=== PATIENT | male | born 1960 | race Caucasian/White ===

== ENCOUNTER → 2021-07-27 | Outpatient (CLI) | payer OTHER, BC ==
[~2021-07-27] MED LIST: ASPI-630 PO; GABA-585 PO; HYDR-2761 PO; HYDR12.575 PO; MULT-496 PO
== END ==
LOC: LAB 12:04
PROVIDERS: ATTEND Podiatrist
DX: Z01.812 Encounter for preprocedural laboratory examination (principal); U07.1 COVID-19
CPT/HCPCS: U0003

== ENCOUNTER 2021-07-29 05:57 | Day surgery (SDC) | payer OTHER, BC ==
[~2021-07-29] VITALS: Ht 182.9 cm; Wt 113.0 kg
[2021-07-29] MEDS ORDERED: ePHEDrine PF IN SALINE 50 MG/10 ML SYRINGE. IV ONE (06:00)
[2021-07-29] MEDS ORDERED: NEOSTIGMINE METHYLSULFATE 5 MG/5 ML SYRINGE. ONE (06:00)
[2021-07-29] MEDS ORDERED: SUCCINYLCHOLINE 200 MG/10 ML VIAL. ONE (06:00)
[2021-07-29] MEDS ORDERED: PROCHLORPERAZINE 10 MG/2 ML VIAL. IVP PRN (06:00)
[2021-07-29] MEDS ORDERED: fentaNYL PF VIAL 100 MCG/2 ML VIAL IVP PRN ×2 (06:00)
[2021-07-29] MEDS ORDERED: MORPHINE SULFATE 2 MG/ML INJ. IVP PRN (06:00)
[2021-07-29] MEDS ORDERED: ROCURONIUM 50 MG/5 ML VIAL. ONE ×2 (06:00→06:23)
[2021-07-29] MEDS ORDERED: HYDROmorphone 2 MG/ML INJ. IVP PRN (06:00)
[2021-07-29] MEDS ORDERED: GLYCOPYRROLATE 1 MG/5 ML SYRINGE. ONE (06:00)
[2021-07-29] MEDS ORDERED: ONDANSETRON PF 4 MG/2 ML VIAL. ONE (06:22)
[2021-07-29] MEDS ORDERED: DEXAMETHASONE SOD PHOS 4 MG/ML VIAL ONE (06:22)
[2021-07-29] MEDS ORDERED: PROPOFOL 10 MG/ML (20ML) VIAL. IV ONE (06:22)
[2021-07-29] MEDS ORDERED: LIDOCAINE 2% PF 5 ML VIAL. ONE (06:22)
[2021-07-29 06:24] VITALS: BP 147/92
[2021-07-29] MEDS ORDERED: HYDR-2761 PO (06:32)
[2021-07-29] MEDS ORDERED: GABA-585 PO (06:32)
[2021-07-29] MEDS ORDERED: HYDR12.575 PO (06:32)
[2021-07-29] MEDS ORDERED: ROPIVacaine 0.5% PF 20 ML VIAL. ONE (06:32)
[2021-07-29] MEDS ORDERED: MULT-496 PO (06:32)
[2021-07-29] MEDS ORDERED: ASPI-630 PO (06:32)
[2021-07-29] MEDS: IV RINGERS,LACTATED 1000ML 1,000 ML IV SCH ×2 (06:34→10:39)
[2021-07-29] MEDS ORDERED: SEVOFLURANE 61 TO 120 MINUTES. IH ONE (06:57)
[2021-07-29] MEDS ORDERED: fentaNYL PF VIAL 250 MCG/5 ML VIAL ONE (06:58)
[2021-07-29] MEDS ORDERED: MIDAZOLAM HCL/PF 2 MG/2 ML VIAL. ONE (06:58)
[2021-07-29] MEDS ORDERED: BUPIVACAINE MPF 0.25% 30 ML VIAL. ONE (07:12)
[2021-07-29] MEDS ORDERED: VANCOMYCIN 1 GM VIAL. ONE (07:12)
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
[2021-07-29] MEDS ORDERED: ONDANSETRON PF 4 MG/2 ML VIAL. IVP PRN (07:30)
[2021-07-29] MEDS ORDERED: ACETAMINOPHEN 325 MG TABLET. PO ONE (07:30)
[2021-07-29] MEDS ORDERED: oxyCODONE/APAP 5/325 1 TAB TABLET PO ONE (07:30)
[2021-07-29] MEDS ORDERED: DEXTROSE 50% 25 GM / 50ML DISP.SYRIN. IV PRN (07:30)
[2021-07-29] MEDS ORDERED: GABAPENTIN 100 MG CAPSULE. PO ONE (07:30)
[2021-07-29] MEDS ORDERED: HYDROmorphone 2 MG/ML INJ. ONE (10:04)
[2021-07-29] MEDS ORDERED: fentaNYL PF VIAL 100 MCG/2 ML VIAL ONE (10:04)
[2021-07-29] MEDS ORDERED: MORPHINE SULFATE 2 MG/ML INJ. ONE (10:04)
[2021-07-29] MEDS ORDERED: PROCHLORPERAZINE 10 MG/2 ML VIAL. ONE (10:05)
--- NOTE | 2021-07-29 10:54 | PDOC4 ---
OPERATIVE NOTE Date: Date: Jul 29, 2021 Pre-Op Diagnosis: Closed right intra-articular calcaneal fracture, Hernandez, IIA, loss of heel height with a varus rotation Post-Op Diagnosis: Same as above Procedure Performed: Right calcaneal ORIF Surgeon: Jessica Arias DPM Anesthesia Type: General anesthesia with a popliteal block preoperatively Blood Loss: 5 cc Specimans Obtained: None Findings: Lobo's II A intra-articular calcaneal body fracture. There is moderate amount of bone loss to the lateral calcaneal wall due to the crush injury. The heel was found in a slight varus rotation and decreased heel height. The anterior calcaneal process fracture is relatively nondisplaced with an open CC joint. After ORIF, the heel height, varus rotation was corrected. The critical angle of Gissane and Boehler's angle were restored. Complications: None Operative Note: Under mild sedation and preoperative popliteal block to the surgical lower extremity, patient was brought into the operating room and placed on the operating table in a supine position. A formal timeout was performed to confirm patient's identity, procedure and procedure site. Following general anesthesia induction and IV antibiotics, a well-padded right thigh tourniquet was placed. Patient was then positioned in a lateral decubitus position with all the prominent osseous structures well-padded and protected. The right lower extremity was then scrubbed, prepped and draped. Exsanguination was achieved with an Esmarch and the tourniquet was inflated to 250 millimercury. Under intraoperative x-ray guidance, a provisional sinus tarsi incision was marked from the posterior subtalar facet extending distally to the anterior calcaneal process. A full-thickness linear incision was made over the sinus tarsi. The incision was carried to deep with a combination of sharp and blunt dissection with care to protect and retract all the neurovascular bundles. The deep fascia was incised with care to protect and preserve the peroneal tendon sheath. The peroneal tendons were distracted plantarly to allow visualization of the lateral subtalar capsule. A lateral capsulotomy was achieved with a #15 blade including the transection of the CFL without violating the ATFL. TCL was resected out to allow adequate visualization of the articular facets of fragments. EDB muscle belly was elevated minimally off the anterior calcaneal process to allow adequate visualization of the subtalar facets. Copious saline solution was used to irrigate and subtalar joint. Afterwards, we noticed a primary fracture line extending from the lateral talar process to plantar calcaneus. There was a depressed posterior subtalar facet at the lateral aspect consistent with a Hernandez IIA fracture. The lateral wall also had significant bone loss from the crush injury. There was also a varus rotation and loss of heel height to the calcaneal tuber. Then a 5 mm Schanz pin was introduced through a stab incision just inferior to the Achilles tendon. The incision was carried deep to the periosteum layer with blunt dissection. Under intraoperative x-ray guidance, the posterior calcaneal body fracture was cap tured with a Schanz pin and reduced dorsally and laterally. After adequate reduction of the articular facets was noted, using standard AO techniques, 3.0 mm partially-threaded comminuted screws were placed from lateral to medial capturing the sustentaculum stephanie the constant fragment. Adequate hardware position and length were confirmed with x-ray. Then using standard AO techniq ues, two struts consisted with 5.0mm millimeter fully threaded screws were placed from P to A from the posterior plantar aspect of the calcaneus aiming towards the subtalar facet and anterior calcaneal process. Adequate hardware position and length were confirmed with intraoperative x-ray. The lateral calcaneal wall was noted smooth and well reduced. Intraoperative x-ray also re marked restored critical angle of Gissane and Boehler's angle. The anterior calcaneal fracture was noted without significant displacement. CC joint is open and preserved. Then the surgical sites was irrigated with copious saline solution. 2 cc of DBM was applied to fill the bone void within the lateral calcaneal body. All the surgical sites were closed in layers with 3-0 Vicryl, 4 Monocryl and 4-0 nylon. Then the surgical sites were dressed with Xeroform, 4 x 4 gauze. The right lower extremity was immobilized in a well-padded Don compression splint with modified sugar tong with ankle held near 90 degrees. Tourniquet was deflated. Adequate digital perfusion was noted afterwards. Patient was transferred to PACU for continuous recovery with vital signs stable and neurovascular status intact. Surgical foot 3 view x-ray along with calcaneal x-ray was ordered. JESSICA ARIAS DPM Jul 29, 2021 10:54
[2021-07-29 11:20] VITALS: BP 155/82
--- NOTE | 2021-07-29 11:41 | RAD ---
Exam: XR OS CALCIS_LT 2+ VIEWS, XR FOOT_RIGHT 3 VIEWS History: Postop calcaneus Comparison: 07/25/2021 Findings/ Impression: There is splint material which limits visualization of the foot and ankle. Postsurgical features from ORIF of comminuted calcaneal fracture with 4 cannulated screws. Alignment is near anatomic. No new a bnormality is identified. Electronically signed by: Donovan Singh MD (07/29/2021 11:38 AM) [id number]
== END 2021-07-29 11:25 | disposition home or self-care (01) ==
LOC: SURG 05:57
PROVIDERS: ATTEND Podiatrist
DX: S92.061A Displaced intraarticular fracture of right calcaneus, initial encounter for closed fracture (principal); I10 Essential (primary) hypertension; J45.909 Unspecified asthma, uncomplicated; E66.9 Obesity, unspecified; M19.90 Unspecified osteoarthritis, unspecified site; Z98.890 Other specified postprocedural states; Z79.899 Other long term (current) drug therapy; X58.XXXA Exposure to other specified factors, initial encounter; Y93.89 Activity, other specified; Y92.89 Other specified places as the place of occurrence of the external cause; Y99.8 Other external cause status
CPT/HCPCS: 28415; 73630; 73650; A4209; A4930; A6223; A6253; A6402; A6449; A6450; C1713; C1769; J0330; J0690; J1100; J2250; J2405; J2704; J2710; J2795; J3010; J3490; A4223; A6454; A6455; J0780; J1170; J2270; J3370

== ENCOUNTER → 2021-08-27 | Outpatient (CLI) | payer OTHER, BC ==
[2021-07-29 11:20] VITALS: BP 155/82
== END ==
LOC: LAB 16:00
PROVIDERS: ATTEND Podiatrist
DX: T81.31XA Disruption of external operation (surgical) wound, not elsewhere classified, initial encounter (principal)
CPT/HCPCS: 87075